=== PATIENT | male | born 1960 | race Caucasian/White ===

== ENCOUNTER 2016-06-19 19:07 | Inpatient (IN) | payer OTHER ==
[~2016-06-19] VITALS: Ht 167.6 cm; Wt 94.9 kg
[~2016-06-19 19:07] MED LIST: BENA40TA67 PO; DIPH25 PO; GABA600T PO; IBUP-1547 PO; METF500T4 PO; QUET200T PO; SERT50TA12 PO
[2016-06-19] MEDS ORDERED: SERT100T12 PO (19:29)
[2016-06-19] MEDS ORDERED: BUSP10TA23 PO (19:29)
[2016-06-19] MEDS ORDERED: ASPI-556 PO (19:29)
[2016-06-19] MEDS ORDERED: METF500T4 PO (19:29)
[2016-06-19] MEDS ORDERED: GABA-531 PO (19:29)
[2016-06-19] MEDS ORDERED: OMEP20 PO (19:29)
[2016-06-19] MEDS ORDERED: QUET300T2 PO (19:29)
[2016-06-19] MEDS ORDERED: AMLO-512 PO (19:29)
[2016-06-19] MEDS ORDERED: GLIM2 PO (19:29)
[2016-06-19 19:31] LABS: GLUCOSE,POINT OF CARE 74 MG/DL (70-110)
[2016-06-19 19:54] LABS: BASOPHILS % (AUTO) 0.4 % (0.0-2.0); EOSINOPHILS % (AUTO) 2.8 % (1.0-6.0); HEMATOCRIT 35.4 % (41-53); HEMOGLOBIN 11.4 g/dL (13.5-17.5); LYMPHOCYTES # (AUTO) 2.5 K/uL (1.0-4.8); LYMPHOCYTES % (AUTO) 20.8 % (22.0-44.0); MEAN CORPUSCULAR HEMOGLOBIN 24.3 pg (26.0-34.0); MEAN CORPUSCULAR HGB CONC 32.1 G/dL (31.0-37.0); MEAN CORPUSCULAR VOLUME 76 fL (80-100); MONOCYTES # (AUTO) 0.9 K/uL (0.1-1.0); MONOCYTES % (AUTO) 7.9 % (2.0-9.0); NEUTROPHILS # (AUTO) 8.2 K/uL (1.8-7.7); NEUTROPHILS % (AUTO) 68.1 % (40.0-70.0); PLATELET COUNT (AUTO) 219 K/uL (150-450); RED BLOOD CELL COUNT(AUTO) 4.67 MIL/uL (4.50-5.90); RED CELL DISTRIBUTION WIDTH 15.3 % (11.5-14.5)
[2016-06-19 20:03] LABS: ANION GAP 11 mmol/L (8-16); CALCIUM, TOTAL 8.1 mg/dL (8.8-10.5); CARBON DIOXIDE 26 mmol/L (22-29); CHLORIDE 99 mmol/L (98-107); CREATININE 0.97 mg/dL (0.60-1.30); GLOMERULAR FILTR. RATE CALC > 60 mL/min (>60); POTASSIUM 3.8 mmol/L (3.5-5.1); SODIUM SERUM 136 mmol/L (136-145); UREA NITROGEN, BLOOD 6 mg/dL (7-18)
[2016-06-19 20:09] LABS: ALANINE AMINOTRANSFERASE 27 U/L (12-78); ALBUMIN 3.2 g/dL (3.4-5.0); ASPARTATE AMINOTRANSFERASE 22 U/L (15-37); BILIRUBIN,TOTAL 0.2 mg/dL (0.1-1.0); TOTAL PROTEIN, SERUM 6.9 g/dL (6.4-8.2)
[2016-06-19] MEDS ORDERED: ASPIRIN 325 MG TABLET PO ONE (20:15)
[2016-06-19] MEDS ORDERED: NITROGLYCERIN 2% (1 GM=INCH) PACKET TP ONE (20:15)
[2016-06-19] MEDS ORDERED: NITROGLYCERIN 0.4 MG SUBLINGUAL TABLET #25 SL ONE (20:15)
[2016-06-19 20:29] LABS: PROTHROMBIN TIME 10.4 SEC (9.4-11.6)
[2016-06-19 20:52] LABS: RBC MORPHOLOGY COMMENT ABNORMAL RBC MORPH
[2016-06-19] MEDS ORDERED: ALBUTEROL SULFATE 2.5 MG/0.5 ML NEB SOLUTION NEB PRN (22:15)
[2016-06-19] MEDS ORDERED: DEXTROSE 50%-WATER 25 GM/50 ML SYRINGE IVP PRN (22:15)
[2016-06-19] MEDS ORDERED: OxyCODONE HCL/ACETAMINOPHEN 5-325 MG TABLET PO PRN (22:15)
[2016-06-19] MEDS ORDERED: MAGNESIUM HYDROXIDE SUSPENSION 30 ML UDCUP PO PRN (22:15)
[2016-06-19] MEDS ORDERED: ACETAMINOPHEN 325 MG TABLET PO PRN (22:15)
[2016-06-19 22:37] VITALS: BP 144/80
[2016-06-19] MEDS ORDERED: CARV6.2579 PO (22:41)
[2016-06-19 23:17] LABS: GLUCOSE,POINT OF CARE 96 MG/DL (70-110)
[2016-06-20 00:07] VITALS: BP 145/68
[2016-06-20] MEDS: HEPARIN SODIUM,PORCINE 5,000 UNITS/ML VIAL SQ SCH ×4 (00:19→23:12)
[2016-06-20 05:31] VITALS: BP 145/80
[2016-06-20] MEDS: INSULIN ASPART 100 UNITS/ML SQ PRN ×2 (06:01→20:26)
[2016-06-20 06:59] LABS: GLUCOSE,POINT OF CARE 135 MG/DL (70-110)
[2016-06-20 07:36] VITALS: BP 151/71
[2016-06-20] MEDS: DOCUSATE SODIUM 100 MG CAPSULE PO SCH ×2 (08:25→20:26)
[2016-06-20] MEDS: ASPIRIN 81 MG CHEWABLE TABLET PO SCH (08:25)
[2016-06-20] MEDS: PANTOPRAZOLE SODIUM 40 MG DR TABLET PO SCH (08:25)
[2016-06-20 11:33] VITALS: BP 145/78
[2016-06-20 15:24] VITALS: BP 168/77
[2016-06-20 19:33] VITALS: BP 146/71
[2016-06-21 00:11] VITALS: BP 162/77
[2016-06-21 04:42] VITALS: BP 160/72
[2016-06-21] MEDS: INSULIN ASPART 100 UNITS/ML SQ PRN ×2 (06:21→11:29)
[2016-06-21 07:52] LABS: GLUCOSE,POINT OF CARE 114 MG/DL (70-110)
[2016-06-21 07:52] LABS: GLUCOSE COMMENT 1 Received Meds; GLUCOSE,POINT OF CARE 120 MG/DL (70-110)
[2016-06-21 07:59] VITALS: BP 162/75
[2016-06-21] MEDS: DOCUSATE SODIUM 100 MG CAPSULE PO SCH (08:04)
[2016-06-21] MEDS: HEPARIN SODIUM,PORCINE 5,000 UNITS/ML VIAL SQ SCH (08:08)
[2016-06-21] MEDS: ASPIRIN 81 MG CHEWABLE TABLET PO SCH (08:08)
[2016-06-21] MEDS: PANTOPRAZOLE SODIUM 40 MG DR TABLET PO SCH (08:09)
[2016-06-21 11:07] VITALS: BP 155/81
[2016-06-21 20:07] LABS: GLUCOSE,POINT OF CARE 119 MG/DL (70-110)
[2016-06-23 07:32] LABS: GLUCOSE,POINT OF CARE 130 MG/DL (70-110)
[2016-06-23 07:37] LABS: GLUCOSE,POINT OF CARE 122 MG/DL (70-110)
== END 2016-06-21 15:05 | disposition home or self-care (01) | DRG 198 ==
LOC: EMS 19:08 → 5S 22:00
PROVIDERS: ADMIT Internal Medicine; ATTEND Internal Medicine
DX: R07.89 Other chest pain (principal); I25.10 Atherosclerotic heart disease of native coronary artery without angina pectoris; J44.9 Chronic obstructive pulmonary disease, unspecified; I10 Essential (primary) hypertension; E11.9 Type 2 diabetes mellitus without complications; E66.9 Obesity, unspecified; R29.6 Repeated falls; F99 Mental disorder, not otherwise specified; F31.9 Bipolar disorder, unspecified; F17.200 Nicotine dependence, unspecified, uncomplicated; E78.00 Pure hypercholesterolemia, unspecified; F20.9 Schizophrenia, unspecified; J45.909 Unspecified asthma, uncomplicated; Z91.19 Patient's noncompliance with other medical treatment and regimen; Z68.33 Body mass index [BMI] 33.0-33.9, adult
CPT/HCPCS: 70450; 70551; 82962; 93005; 97162; 99285; G0480; J1644

== ENCOUNTER 2017-10-07 04:54 | Emergency (ER) | payer OTHER ==
[~2017-10-07] VITALS: Ht 167.6 cm; Wt 100.0 kg
[~2017-10-07 04:54] MED LIST changes: +AMLO-512 PO; +ASPI-556 PO; +BUSP10TA23 PO; +CARV6.2579 PO; -DIPH25 PO; +GABA-531 PO; -GABA600T PO; +GLIM2 PO; -IBUP-1547 PO; -METF500T4 PO; +METF500T6 PO; +OMEP20 PO; -QUET200T PO; +QUET300T2 PO; +SERT100T12 PO; -SERT50TA12 PO
[2017-10-07 05:34] LABS: BASOPHILS % (AUTO) 1.3 % (0.0-2.0); EOSINOPHILS % (AUTO) 6.5 % (1.0-6.0); HEMATOCRIT 47.9 % (41-53); LYMPHOCYTES # (AUTO) 2.2 K/uL (1.0-4.8); LYMPHOCYTES % (AUTO) 27.1 % (22.0-44.0); MEAN CORPUSCULAR HEMOGLOBIN 34.6 pg (26.0-34.0); MEAN CORPUSCULAR HGB CONC 35.4 G/dL (31.0-37.0); MEAN CORPUSCULAR VOLUME 98 fL (80-100); MONOCYTES # (AUTO) 0.9 K/uL (0.1-1.0); MONOCYTES % (AUTO) 11.6 % (2.0-9.0); NEUTROPHILS # (AUTO) 4.3 K/uL (1.8-7.7); NEUTROPHILS % (AUTO) 53.5 % (40.0-70.0); PLATELET COUNT (AUTO) 158 K/uL (150-450); RED BLOOD CELL COUNT(AUTO) 4.91 MIL/uL (4.50-5.90); RED CELL DISTRIBUTION WIDTH 13.6 % (11.5-14.5)
[2017-10-07] MEDS ORDERED: FERR-89 PO (05:40)
[2017-10-07] MEDS ORDERED: ATOR20TA86 PO (05:40)
[2017-10-07] MEDS ORDERED: DULO30CA2 PO (05:40)
[2017-10-07 05:41] LABS: ANION GAP 6 mmol/L (8-16); CALCIUM, TOTAL 8.2 mg/dL (8.8-10.5); CARBON DIOXIDE 29 mmol/L (22-29); CHLORIDE 97 mmol/L (98-107); CREATININE 0.61 mg/dL (0.60-1.30); GLOMERULAR FILTR. RATE CALC > 60 mL/min (>60); GLUCOSE,RANDOM 68 mg/dL (70-110); SODIUM SERUM 132 mmol/L (136-145); UREA NITROGEN, BLOOD 4 mg/dL (7-18)
[2017-10-07 05:47] LABS: ALANINE AMINOTRANSFERASE 31 U/L (12-78); ALBUMIN 3.6 g/dL (3.4-5.0); ALKALINE PHOSPHATASE 79 U/L (46-116); ASPARTATE AMINOTRANSFERASE 21 U/L (15-37); BILIRUBIN,TOTAL 0.4 mg/dL (0.1-1.0)
[2017-10-07 05:49] LABS: GLUCOSE,POINT OF CARE 61 MG/DL (70-110)
[2017-10-07 05:58] LABS: AMPHET/METH SCREEN,URINE NEGATIVE (NEGATIVE); BARBITURATE SCREEN, URINE NEGATIVE (NEGATIVE); BENZODIAZEPINES SCREEN,URINE NEGATIVE (NEGATIVE); CANNABINOID SCREEN,URINE NEGATIVE (NEGATIVE); COCAINE SCREEN,URINE NEGATIVE (NEGATIVE); METHADONE SCREEN, URINE NEGATIVE (NEGATIVE); OPIATE SCREEN,URINE NEGATIVE (NEGATIVE)
[2017-10-07 05:59] LABS: PHENCYCLIDINE SCREEN,URINE NEGATIVE (NEGATIVE)
[2017-10-07 06:19] LABS: GLUCOSE,POINT OF CARE 76 MG/DL (70-110)
[2017-10-07 07:33] LABS: GLUCOSE,POINT OF CARE 82 MG/DL (70-110)
[2017-10-07 09:00] VITALS: BP 137/75
== END 2017-10-07 09:20 | disposition home or self-care (01) ==
LOC: EMS 04:55
DX: R44.0 Auditory hallucinations (principal); E11.649 Type 2 diabetes mellitus with hypoglycemia without coma; F10.20 Alcohol dependence, uncomplicated; I10 Essential (primary) hypertension; E78.00 Pure hypercholesterolemia, unspecified; E11.9 Type 2 diabetes mellitus without complications; J44.9 Chronic obstructive pulmonary disease, unspecified; J45.909 Unspecified asthma, uncomplicated; F17.210 Nicotine dependence, cigarettes, uncomplicated
CPT/HCPCS: 36415; 80053; 80307; 82962; 85025; 99285; G0480

== ENCOUNTER 2018-03-02 13:26 | Emergency (ER) | payer OTHER ==
[~2018-03-02] VITALS: Ht 167.6 cm; Wt 96.4 kg
[~2018-03-02 13:26] MED LIST changes: -ASPI-556 PO; +ATOR20TA86 PO; -BUSP10TA23 PO; +DULO30CA2 PO; +FERR-89 PO; +METF-960 PO; -METF500T6 PO; -SERT100T12 PO
[2018-03-02 13:57] LABS: BASOPHILS % (AUTO) 0.9 % (0.0-2.0); HEMOGLOBIN 16.1 g/dL (13.5-17.5); LYMPHOCYTES # (AUTO) 1.8 K/uL (1.0-4.8); LYMPHOCYTES % (AUTO) 19.5 % (22.0-44.0); MEAN CORPUSCULAR HEMOGLOBIN 34.2 pg (26.0-34.0); MEAN CORPUSCULAR HGB CONC 34.3 G/dL (31.0-37.0); MEAN CORPUSCULAR VOLUME 100 fL (80-100); MONOCYTES # (AUTO) 0.7 K/uL (0.1-1.0); MONOCYTES % (AUTO) 7.3 % (2.0-9.0); NEUTROPHILS # (AUTO) 6.2 K/uL (1.8-7.7); NEUTROPHILS % (AUTO) 68.3 % (40.0-70.0); PLATELET COUNT (AUTO) 175 K/uL (150-450); RED BLOOD CELL COUNT(AUTO) 4.72 MIL/uL (4.50-5.90); RED CELL DISTRIBUTION WIDTH 12.9 % (11.5-14.5)
[2018-03-02] MEDS ORDERED: BUSP10TA23 PO (13:59)
[2018-03-02] MEDS ORDERED: IPRAHFA IH (13:59)
[2018-03-02] MEDS ORDERED: BUDE10.2 IH (13:59)
[2018-03-02 14:07] LABS: ANION GAP 8 mmol/L (8-16); CALCIUM, TOTAL 8.9 mg/dL (8.8-10.5); CARBON DIOXIDE 29 mmol/L (22-29); CHLORIDE 99 mmol/L (98-107); CREATININE 0.78 mg/dL (0.60-1.30); GLOMERULAR FILTR. RATE CALC > 60 mL/min (>60); GLUCOSE,RANDOM 308 mg/dL (70-110); POTASSIUM 4.1 mmol/L (3.5-5.1); SODIUM SERUM 136 mmol/L (136-145); UREA NITROGEN, BLOOD 6 mg/dL (7-18)
[2018-03-02 14:15] LABS: ALANINE AMINOTRANSFERASE 41 U/L (12-78); ALBUMIN 3.3 g/dL (3.4-5.0); ALKALINE PHOSPHATASE 138 U/L (46-116); ASPARTATE AMINOTRANSFERASE 23 U/L (15-37); BILIRUBIN,TOTAL 0.4 mg/dL (0.1-1.0); TOTAL PROTEIN, SERUM 7.1 g/dL (6.4-8.2)
[2018-03-02 14:34] LABS: AMPHET/METH SCREEN,URINE NEGATIVE (NEGATIVE); BARBITURATE SCREEN, URINE NEGATIVE (NEGATIVE); BENZODIAZEPINES SCREEN,URINE NEGATIVE (NEGATIVE); CANNABINOID SCREEN,URINE NEGATIVE (NEGATIVE); COCAINE SCREEN,URINE NEGATIVE (NEGATIVE); METHADONE SCREEN, URINE NEGATIVE (NEGATIVE); OPIATE SCREEN,URINE NEGATIVE (NEGATIVE)
[2018-03-02 14:35] LABS: PHENCYCLIDINE SCREEN,URINE NEGATIVE (NEGATIVE)
[2018-03-02 15:21] VITALS: BP 151/76
== END 2018-03-02 16:03 | disposition home or self-care (01) ==
LOC: EMS 13:27
DX: F20.9 Schizophrenia, unspecified (principal); J45.909 Unspecified asthma, uncomplicated; F31.9 Bipolar disorder, unspecified; E11.9 Type 2 diabetes mellitus without complications; E78.00 Pure hypercholesterolemia, unspecified; I10 Essential (primary) hypertension; F17.210 Nicotine dependence, cigarettes, uncomplicated
CPT/HCPCS: 36415; 80053; 80307; 82962; 85025; 99285; G0480